=== PATIENT | male | born 1950 | race African-American/Black ===

== ENCOUNTER 2017-07-17 05:08 | Emergency (ER) | payer BC, OTHER ==
[~2017-07-17] VITALS: Ht 175.3 cm; Wt 87.1 kg
[~2017-07-17 05:08] MED LIST: ACTO30TA7 PO; FIORIC PO; GLIM4 PO; IBUP600T26 PO; LISI-587 PO; METF500 PO; ORPH100T PO; PRAV40TA2 PO
[2017-07-17 05:13] VITALS: BP 131/69; PULSE 83; RESP 22; TEMP 98; O2SAT 97
[2017-07-17] MEDS ORDERED: PRAV20TA2 PO (05:24)
[2017-07-17] MEDS ORDERED: METF1000 PO (05:24)
[2017-07-17] MEDS ORDERED: CLAR10CA3 PO (05:24)
[2017-07-17] MEDS ORDERED: GLIM4TAB PO (05:24)
[2017-07-17] MEDS ORDERED: AMLO10TA2 PO (05:24)
[2017-07-17] MEDS ORDERED: BENZ1CAP54 PO (05:24)
[2017-07-17] MEDS ORDERED: SODIUM CHLORIDE 0.9% FLUSH 10 ML FLUSH IVF PRN (05:30)
[2017-07-17] MEDS ORDERED: methylPREDNISolone SOD SUCC 125 MG/2 ML VIAL IV PUSH ONE (05:30)
--- NOTE | 2017-07-17 05:33 | PD ---
HPI Chief Complaint: Cold / Flu Symptoms Time Seen by Provider: 05:27 Travel History International Travel<30 days: No Contact w/Intl Traveler<30days: No Traveled to known affect area: No History of Present Illness HPI The patient is a 67-year-old male that complains of fever and congestion for 2 days. The patient noticed that he has been wheezing. He does not have a history of asthma. He has a nonsmoker and does not drink alcohol either. He denies any fever, nausea, vomiting or diarrhea. She denies any chest pain. He has no known allergies. He does have a history of diabetes which is controlled with Glucophage, glimepiride and Actos. PFSH Past Medical History Cardiovascular Problems: Yes High Cholesterol: Yes Coronary Artery Disease: Yes Diabetes: Yes Diminished Hearing: No Headaches: Yes Hypertension: Yes Migraines: Yes Social History Alcohol Use: No Tobacco Use: No Substance Use: No Allergies-Medications (Allergen,Severity, Reaction): Coded Allergies: No Known Allergies (Unverified Adverse Reaction, Unknown, 07/17/17) Reported Meds & Prescriptions Reported Meds & Active Scripts Active Prednisone 50 Mg Tab 50 Mg PO BID Proair Hfa 8.5 GM Inh (Albuterol Sulfate) 90 Mcg/Act Aer 2 Puff INH Q4-6H PRN 108 mcg/actuation Reported Benzonatate 100 Mg Cap 100 Mg PO TID PRN Glimepiride 4 Mg Tab 4 Mg PO DAILY Take with breakfast or first main meal Claritin (Loratadine) 10 Mg Cap 10 Mg PO DAILY Amlodipine (Amlodipine Besylate) 10 Mg Tab 10 Mg PO DAILY Metformin (Metformin HCl) 1,000 Mg Tab 1,000 Mg PO BIDPC Pravastatin 20 Mg Tab 20 Mg PO DAILY Review of Systems Except as stated in HPI: all other systems reviewed are Neg Physical Exam Narrative GENERAL: The patient is alert, oriented 3 in minimal distress with his wheezing. His vital signs show respiratory rate of 22 but are otherwise normal. Respiratory 7% on room air. SKIN: Focused skin assessment warm/dry. HEAD: Atraumatic. Normocephalic. EYES: Pupils equal and round. No scleral icterus. No injection or drainage. ENT: No nasal bleeding or discharge. Mucous membranes pink and moist. NECK: Trachea midline. No JVD. CARDIOVASCULAR: Regular rate and rhythm. No murmur appreciated. RESPIRATORY: No accessory muscle use. Bilateral wheezes are heard in all lung de la o. Breath sounds equal bilaterally. GASTROINTESTINAL: Abdomen soft, non-tender, nondistended. Hepatic and splenic margins not palpable. MUSCULOSKELETAL: No obvious deformities. No clubbing. No cyanosis. No edema. NEUROLOGICAL: Awake and alert. No obvious cranial nerve deficits. Motor grossly within normal limits. Normal speech. PSYCHIATRIC: Appropriate mood and affect; insight and judgment normal. Data Data Last Documented VS Vital Signs Date Time Temp Pulse Resp B/P (MAP) Pulse Ox O2 Delivery O2 Flow Rate FiO2 07/17/17 05:31 97 Room Air 07/17/17 05:26 77 18 07/17/17 05:13 98.0 131/69 (89) Orders Orders Chest, Pa & Lat (07/17/17 05:27) Oxygen Administration (07/17/17 05:27) Sodium Chloride 0.9% Flush (Ns Flush) (07/17/17 05:30) Methylprednisolone So Succ Inj (Solumedr (07/17/17 05:30) Albuterol-Ipratropium Neb (Duoneb Neb) (07/17/17 05:30) MDM Medical Decision Making Medical Screen Exam Complete: Yes Emergency Medical Condition: Yes Medical Record Reviewed: Yes Interpretation(s) The chest x-ray shows no acute cardiopulmonary disease. Differential Diagnosis Bronchitis, bronchospasm, asthma, pneumonia, pulmonary embolus-extremely unlikely Narrative Course The patient got good relief with the DuoNeb treatments. He will be given a prescription for albuterol HFA. He also was given a tapered course of prednisone over 8 days. I discussed with the patient the fact that his sugar will probably be elevated and he may need to quit the medication a few sugar goes up tonight. He is to follow-up with his primary care physician next week. Impression: Bronchitis with bronchospasm Diagnosis Primary Impression: Bronchitis with bronchospasm Additional Instructions: The prednisone is one tablet twice daily for 4 days followed by one tablet once daily for 4 days. The albuterol puffer is 2 puffs every 4 hours as needed for wheezing. Follow up with your primary care physician next week. Increase liquid intake to help cough the mucus out of her lungs. Med/Other Pt SpecificInfo: Prescription(s) given Scripts Prednisone (Prednisone) 50 Mg Tab 50 MG PO BID for X4 days than daily X 4 days, #12 TAB 0 Refills Prov: John Hardin MD 07/17/17 Albuterol 8.5 GM Inh (Proair Hfa 8.5 GM Inh) 90 Mcg/Act Aer 2 PUFF INH Q4-6H Y for SHORTNESS OF BREATH, #1 INHALER 0 Refills 108 mcg/actuation Prov: John Hardin MD 07/17/17 Disposition: 01 DISCHARGE HOME Condition: Stable John Hardin MD Jul 17, 2017 05:33
[2017-07-17] MEDS: RESP: ALBUTEROL 2.5 MG/IPRATROPIUM 0.5 MG NEB (SCH) INH ×3 (05:35→05:56)
[2017-07-17] MEDS ORDERED: ALBUAER3 INH (06:06)
[2017-07-17] MEDS ORDERED: PRED50 PO (06:06)
--- NOTE | 2017-07-17 06:40 | RADRPT ---
EXAM DATE/TIME: 07/17/2017 05:43 [facility] COMPARISON: No previous studies available for comparison. INDICATIONS : Short of breath. MEDICAL HISTORY : None. SURGICAL HISTORY : None. ENCOUNTER: Initial ACUITY: 1 week PAIN SCORE: 0/10 LOCATION: Bilateral chest FINDINGS: PA and lateral views of the chest demonstrate the lungs to be symmetrically aerated without evidence of mass, infiltrate or effusion. The cardiomediastinal contours are unremarkable. Osseous structure s are intact. CONCLUSION: No evidence of acute cardiopulmonary disease. Alexander Lorenzo MD on July 17, 2017 at 6:39 Board Certified Radiologist. This report was verified electronically.
== END 2017-07-17 07:06 | disposition home or self-care (01) ==
LOC: PHED 05:08
DX: J20.9 Acute bronchitis, unspecified (principal); I10 Essential (primary) hypertension; E78.00 Pure hypercholesterolemia, unspecified; I25.10 Atherosclerotic heart disease of native coronary artery without angina pectoris; E11.9 Type 2 diabetes mellitus without complications; Z79.84 Long term (current) use of oral hypoglycemic drugs; Z79.899 Other long term (current) drug therapy
CPT/HCPCS: 71020; 94640; 94664; 96374; 99284; J2930